=== PATIENT | male | born 1985 | race Caucasian/White ===

== ENCOUNTER 2019-03-30 12:03 | Emergency (ER) | payer OTHER ==
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
[2019-03-30 13:57] VITALS: BP 125/68
== END 2019-03-30 13:55 | disposition home or self-care (01) ==
LOC: ED 12:03
DX: S00.93XA Contusion of unspecified part of head, initial encounter (principal); S09.90XA Unspecified injury of head, initial encounter; W50.0XXA Accidental hit or strike by another person, initial encounter; Y92.149 Unspecified place in prison as the place of occurrence of the external cause; R55 Syncope and collapse; R51 Headache
CPT/HCPCS: 70450; 70486; 72125; 99282